=== PATIENT | female | born 1945 ===

== ENCOUNTER 2023-02-25 09:45 | Inpatient (IN) | payer OTHER ==
[~2023-02-25] VITALS: Ht 149.9 cm; Wt 77.1 kg
[2023-02-25] MEDS ORDERED: SYNTHROID50 MCG PO (13:09)
[2023-02-25] MEDS ORDERED: CRESTOR20 MG PO (13:11)
[2023-02-25] MEDS ORDERED: ATACAND HCT 161 EACH PO (13:11)
[2023-02-25] MEDS ORDERED: PROLIA60 MG/1 ML SQ (13:11)
[2023-02-25] MEDS ORDERED: OPTIMAL D3 M350 MCG PO (13:12)
[2023-03-02] MEDS ORDERED: FAMOTIDINE40 MG (10:58)
[2023-03-02] MEDS ORDERED: GABAPENTIN100 M2 (10:58)
[2023-03-03] MEDS ORDERED: TRAM1TAB98 PO (07:36)
[2023-03-03] MEDS ORDERED: BACTRIM DS TAB1 EACH PO (07:36)
[2023-03-03] MEDS ORDERED: INTEGRA PLUS C1 EACH PO (07:36)
== END 2023-03-03 14:15 | disposition home or self-care (01) | DRG 483 ==
LOC: O/R 03-02 05:18 → SURG 03-02 07:00 → SURH 03-02 11:42
PROVIDERS: ADMIT Orthopaedic Surgery Sports Medicine; ATTEND Orthopaedic Surgery Sports Medicine
PROC: 0LS10ZZ Reposition Right Shoulder Tendon, Open Approach (ICD-10-PCS; 2023-03-02)
PROC: 0RCJ0ZZ Extirpation of Matter from Right Shoulder Joint, Open Approach (ICD-10-PCS; 2023-03-02)
PROC: 0RRJ00Z Replacement of Right Shoulder Joint with Reverse Ball and Socket Synthetic Substitute, Open Approach (ICD-10-PCS; principal; 2023-03-02 07:00)
DX: M19.011 Primary osteoarthritis, right shoulder (principal); Z20.822 Contact with and (suspected) exposure to COVID-19